=== PATIENT | female | born 1985 | race Two or more races ===

== ENCOUNTER 2018-12-09 10:18 | Observation (INO) | payer MEDICAID ==
[~2018-12-09 10:18] MED LIST: PREN-96 PO
== END 2018-12-09 12:10 | disposition home or self-care (01) | DRG 566 ==
LOC: LDRP 10:18
PROVIDERS: ADMIT Specialist; ATTEND Specialist
DX: O48.0 Post-term pregnancy (principal); Z3A.40 40 weeks gestation of pregnancy
CPT/HCPCS: 59025; 76818; 81002; G0378

== ENCOUNTER 2018-12-11 12:37 | Observation (INO) | payer MEDICAID | END 2018-12-11 14:55 | disposition home or self-care (01) | DRG 566 | LOC: LDRP 12:37 | PROVIDERS: ADMIT Specialist; ATTEND Specialist | DX: O62.9 Abnormality of forces of labor, unspecified (principal); O48.0 Post-term pregnancy; Z3A.40 40 weeks gestation of pregnancy | CPT/HCPCS: 59025; 76818; 81002; G0378 ==

== ENCOUNTER 2018-12-13 19:45 | Observation (INO) | payer MEDICAID | END 2018-12-13 21:40 | disposition home or self-care (01) | DRG 566 | LOC: LDRP 19:45 | PROVIDERS: ADMIT Specialist; ATTEND Specialist | DX: O48.0 Post-term pregnancy (principal); Z3A.40 40 weeks gestation of pregnancy | CPT/HCPCS: 76818; G0378; 59025; 81002 ==

== ENCOUNTER 2018-12-14 15:25 | Inpatient (IN) | payer MEDICAID | END 2018-12-16 09:23 | disposition home or self-care (01) | LOC: LDRP 15:25 | PROC: 10E0XZZ Delivery of Products of Conception, External Approach (ICD-10-PCS; principal; ~2018-12-14) | PROC: 0KQM0ZZ Repair Perineum Muscle, Open Approach (ICD-10-PCS; ~2018-12-14) | DX: O70.1 Second degree perineal laceration during delivery (principal); Z37.0 Single live birth; Z3A.40 40 weeks gestation of pregnancy ==

== ENCOUNTER 2020-02-12 11:29 | Outpatient (CLI) | payer MEDICAID | END 2020-02-12 14:05 | disposition home or self-care (01) | LOC: XYW 11:29 → LDRP 11:30 | PROVIDERS: ADMIT Specialist; ATTEND Specialist | DX: Z34.90 Encounter for supervision of normal pregnancy, unspecified, unspecified trimester (principal); Z79.899 Other long term (current) drug therapy | CPT/HCPCS: 59025; 76818; 81002; G0378 ==

== ENCOUNTER 2020-02-14 15:15 | Observation (INO) | payer MEDICAID | END 2020-02-14 17:10 | disposition home or self-care (01) | LOC: LDRP 15:15 | PROVIDERS: ADMIT Specialist; ATTEND Specialist | DX: O48.0 Post-term pregnancy (principal); O09.523 Supervision of elderly multigravida, third trimester; O22.03 Varicose veins of lower extremity in pregnancy, third trimester; Z3A.40 40 weeks gestation of pregnancy | CPT/HCPCS: 59025; 76818; 81002; G0378 ==

== ENCOUNTER 2020-02-15 19:26 | Observation (INO) | payer MEDICAID | END 2020-02-15 21:42 | disposition home or self-care (01) | LOC: LDRP 19:26 | PROVIDERS: ADMIT Specialist; ATTEND Specialist | DX: O48.0 Post-term pregnancy (principal); Z20.828 Contact with and (suspected) exposure to other viral communicable diseases; O22.03 Varicose veins of lower extremity in pregnancy, third trimester; Z3A.40 40 weeks gestation of pregnancy | CPT/HCPCS: 59025; 76818; 81002; G0378; U0003 ==

== ENCOUNTER 2020-02-16 13:59 | Observation (INO) | payer MEDICAID | END 2020-02-16 15:07 | disposition home or self-care (01) | LOC: LDRP 13:59 | PROVIDERS: ADMIT Specialist; ATTEND Specialist | DX: O48.0 Post-term pregnancy (principal); O09.523 Supervision of elderly multigravida, third trimester; Z3A.40 40 weeks gestation of pregnancy | CPT/HCPCS: 59025; 76818; 81002; G0378 ==

== ENCOUNTER → 2020-03-29 | Day surgery (SDC) | payer MEDICAID ==
[2020-03-25 13:10] LABS: Basophils # (auto) 0 10 ^3/uL (0-0.2); Basophils % (auto) 0.2 % (0.0-2.0); Eosinophils # (auto) 0 10 ^3/uL (0-0.8); Eosinophils % (auto) 0.8 % (0.0-7.0); Hematocrit 44.1 % (36.0-46.0); Hemoglobin 14.7 g/dL (12.2-16.2); Lymphocytes # (auto) 2.4 10 ^3/uL (0.4-5.4); Lymphocytes % (auto) 38.9 % (10.0-50.0); Mean Corpuscular Hemoglobin 30.4 pg (28.0-32.0); Mean Corpuscular Hgb Conc. 33.4 g/dL (32.0-36.0); Monocytes # (auto) 0.4 10 ^3/uL (0-1.3); Monocytes % (auto) 5.8 % (0.0-12.0); Neutrophils # (auto) 3.4 10 ^3/uL (1.6-8.6); Neutrophils % (auto) 54.3 % (37.0-80.0); Platelet Count (auto) 172 10^3/uL (140-450); Red Blood Cells 4.85 10^6/uL (4.0-5.20); Red Cell Distribution Width 12.9 % (11.8-14.3); White Blood Cell 6.2 10^3/uL (4.4-10.8)
[2020-03-25 13:18] LABS: Urine Bacteria MOD /hpf (None Seen); Urine Blood TRACE /uL (Negative); Urine Specific Gravity 1.007 (1.001-1.035); Urine WBC 68 /hpf (0 - 5)
[2020-03-25 13:24] LABS: Albumin 3.8 g/dL (3.4-5.0); BUN/Creatinine Ratio 15.3
[2020-03-25 13:27] LABS: Bilirubin, Total 0.4 mg/dL (0.2-1.0); Total Protein 7.6 g/dL (6.4-8.2)
[2020-03-25 13:32] LABS: INR 0.98 (0.9-1.15); Partial Thromboplastin Time 28.5 sec (23.0-31.2)
[~2020-03-29] VITALS: Ht 157.5 cm; Wt 68.9 kg
[~2020-03-29] MED LIST changes: +DexAMETHasone SOD PHOS 10MG/1ML VIAL INJ ONE; +GLYCOPYRROLATE 0.2 MG/ML 1ML VIAL ONE; +HYDROmorphone HCL 2 MG/ML VL IV PRN; +KETOROLAC TROMETH 30 MG/ML 1ML VIAL IV ONE; +LABETALOL HCL 5 MG/ML 4ML SYRINGE IV PRN; +LACTATED RINGER'S 1,000 ML IV SCH; +MEPERIDINE HCL (50 MG/ML) 1 ML VIAL ONE; +MIDAZOLAM HCL 1MG/1ML-2 ML VIAL ONE; +MORPHINE SULFATE 4 MG/ML SYR/VIAL IV PRN; +NEOSTIGMINE 1 MG/ML INJ (10mg/10ML VIAL) ONE; +ONDANSETRON HCL 4 MG/2 ML VIAL IV PRN; +PROPOFOL 10 MG/ML 20 ML IV ONE; +ROCURONIUM 10MG/ML 10ML VIAL IV ONE; +ceFAZolin 1GM/50ML 50 ML IV ONE; +ePHEDrine SULFATE 50 MG/ML AMP IV PRN; +fentaNYL CITRATE 100 MCG/2 ML VL ONE
[2020-03-29 09:45] VITALS: BP 158/64
== END | disposition home or self-care (01) ==
LOC: SUR 06:23
PROVIDERS: ATTEND Specialist
DX: Z30.2 Encounter for sterilization (principal); Z20.828 Contact with and (suspected) exposure to other viral communicable diseases; Z98.890 Other specified postprocedural states; Z79.899 Other long term (current) drug therapy
CPT/HCPCS: 36415; 58671; 80053; 81001; 84702; 85025; 85610; 85730; 86850; 86900; 86901; J0690; J1100; J2175; J2250; J2704; J3010; U0003

== ENCOUNTER → 2023-09-14 | Outpatient (CLI) | payer BC, MEDICAID ==
[~2023-09-14] MED LIST changes: -DexAMETHasone SOD PHOS 10MG/1ML VIAL INJ ONE; -GLYCOPYRROLATE 0.2 MG/ML 1ML VIAL ONE; -HYDROmorphone HCL 2 MG/ML VL IV PRN; -KETOROLAC TROMETH 30 MG/ML 1ML VIAL IV ONE; -LABETALOL HCL 5 MG/ML 4ML SYRINGE IV PRN; -LACTATED RINGER'S 1,000 ML IV SCH; -MEPERIDINE HCL (50 MG/ML) 1 ML VIAL ONE; -MIDAZOLAM HCL 1MG/1ML-2 ML VIAL ONE; -MORPHINE SULFATE 4 MG/ML SYR/VIAL IV PRN; -NEOSTIGMINE 1 MG/ML INJ (10mg/10ML VIAL) ONE; -ONDANSETRON HCL 4 MG/2 ML VIAL IV PRN; -PROPOFOL 10 MG/ML 20 ML IV ONE; -ROCURONIUM 10MG/ML 10ML VIAL IV ONE; -ceFAZolin 1GM/50ML 50 ML IV ONE; -ePHEDrine SULFATE 50 MG/ML AMP IV PRN; -fentaNYL CITRATE 100 MCG/2 ML VL ONE
[2023-09-14 12:27] LABS: Albumin 4.6 g/dL (3.2-4.8); Bilirubin, Direct 0.1 mg/dL (<0.3); Total Protein 7.4 g/dL (5.7-8.2)
[2023-09-14 12:40] LABS: Bilirubin, Total 0.5 mg/dL (0.2-1.0)
== END | disposition home or self-care (01) ==
LOC: LAB 11:41
PROVIDERS: ATTEND Internal Medicine
DX: B35.1 Tinea unguium (principal)
CPT/HCPCS: 36415; 80076

== ENCOUNTER 2024-11-14 14:27 | Outpatient (CLI) | payer BC ==
[2024-11-16 03:07] LABS: Chlamydia Trachomatis, NAA Negative (Negative); Neisseria gonorrhoeae, NAA Negative (Negative)
== END 2024-11-14 17:54 | disposition home or self-care (01) ==
LOC: LAB 14:27
DX: Z11.3 Encounter for screening for infections with a predominantly sexual mode of transmission (principal); Z11.1 Encounter for screening for respiratory tuberculosis; Z23 Encounter for immunization
CPT/HCPCS: 36415; 86780